=== PATIENT | male | born 1940 | race Caucasian/White ===

== ENCOUNTER → 2023-03-16 12:57 | Outpatient (CLI) | payer OTHER, SELFPAY ==
--- NOTE | 2023-03-16 | DI.ECHO.S_ITS ---
[facility]---------+ [facility] +---------+ : : [address] : [address] : : : : [id number] : : : : Phone: [phone]---------+ Echocardiogram Report + + :Name: REGINE WHITAKER Study Date: 03/16/2023 Height: 71 in : :[facility] ReadingLocation: Weight: 170 lb : : Gender: Male BSA: 2.0 m2 : :: 1940 Age: 82 yrs BP: 156/90 mmHg: :Reason For Study: Ischemic Heart Disease : :Ordering Physician: Lloyd, : :Yancy Performed By: Renetta Lerner : :Referring: Yancy Desai : + + Interpretation Summary The ejection fraction is estimated to be 55-60%. Diastolic function could not be accurately assessed due to atrial fibrillation. The right ventricle is normal in size and function. Both atria are moderately dilated. There is moderate mitral regurgitation. There is trace aortic regurgitation. There is moderate tricuspid regurgitation. The right ventricular systolic pressure is estimated to be at least 28 mmHg based on an estimated right atrial pressure of 3 mm Hg. The ascending aorta is mildly enlarged, 4.1 cm. Procedure: A two-dimensional transthoracic echocardiogram with color flow and Doppler was performed. The study quality was technically adequate. There is no prior echocardiogram noted for this patient. The patient was in atrial fibrillation with heart rates between 52-127 bpm during the exam. Left Ventricle: The left ventricle is normal in size. The ejection fraction is estimated to be 55-60%. Diastolic function could not be accurately assessed due to atrial fibrillation. Right Ventricle: The right ventricle is normal in size and function. Atria: Both atria are moderately dilated. There is no Doppler evidence for an interatrial shunt. Mitral Valve: The mitral valve is normal. There is no mitral valve stenosis. There is moderate mitral regurgitation. Aortic Valve: The aortic valve is trileaflet. There is moderate aortic valve sclerosis. There is discrete nodular thickening of the non- coronary cusp. There is no hemodynamically significant valvular aortic stenosis. There is trace aortic regurgitation. Tricuspid Valve: The tricuspid valve is normal. There is no tricuspid stenosis. There is moderate tricuspid regurgitation. The right ventricular systolic pressure is estimated to be at least 28 mmHg based on an estimated right atrial pressure of 3 mm Hg. Pulmonic Valve: The pulmonic valve leaflets are thin and pliable; valve motion is normal. There is no pulmonic valvular stenosis. There is mild pulmonic regurgitation. Great Vessels: The aortic root is borderline dilated. The ascending aorta is mildly enlarged. The pulmonary artery is normal size. The IVC is of normal diameter and collapses greater than 50% with a sniff. This suggests a low right atrial pressure of 3 mm Hg. Pericardium/ Pleura There is no pericardial effusion. There is no pleural effusion. MMode/2D Measurements & Calculations LVIDd: 3.3 cm LVOT diam: 1.6 cm LVIDs: 2.1 cm Ao root diam: 3.8 cm FS: 36.4 % asc Aorta Diam: 4.1 cm IVSd: 1.2 cm LVPWd: 1.0 cm LV hall. diameter/BSA (cm/m^2): 1.7 LV sys. diameter/BSA (cm/m^2): 1.1 LA A2 area: 24.5 cm2 RA long axis: 6.4 cm LA A4 area: 22.7 cm2 RA area: 19.5 cm2 LA length (vol): 6.7 cm RA vol: 50.9 ml LA vol: 70.2 ml RA : 25.9 ml/m2 LA vol index: 35.7 ml/m2 RVD1 (basal): 3.5 cm LVLs ap4: 5.7 cm LVLd ap2: 6.7 cm TAPSE_phl: 2.0 cm LVLs ap2: 5.6 cm Doppler Measurements & Calculations Ao V2 max: 113.5 cm/sec LVOT Max Horacio: 107.7 cm/sec Ao V2 mean: 74.5 cm/sec LV V1 max P.6 mmHg Ao max P.0 mmHg LV V1 VTI: 21.1 cm Ao mean P.0 mmHg NIEVES(I,D): 1.8 cm2 Ao V2 VTI: 23.8 cm NIEVES(V,D): 1.9 cm2 sev ratio: 0.89 NIEVES indexed to BSA (cm^2/m^2): 0.91 TR max horacio: 232.4 cm/sec SV(LVOT): 42.4 ml TR max P.7 mmHg PA V2 max: 69.0 cm/sec PA V2 mean: 45.3 cm/sec PA mean P.0 mmHg PA pr(Accel): 34.0 mmHg AV VR_phl: 0.95 NIEVES(VTI)/BSA_phl: 0.90 Reading Physician:04:05 PM
== END ==
PROVIDERS: Referring Provider Family Medicine; Visit Provider Family Medicine
DX: I25.9 Chronic ischemic heart disease, unspecified (principal); I08.1 Rheumatic disorders of both mitral and tricuspid valves; I77.89 Other specified disorders of arteries and arterioles
CPT/HCPCS: 93306